=== PATIENT | male | born 1970 | race Caucasian/White ===

== ENCOUNTER 2017-04-16 12:29 | Emergency (ER) | payer OTHER ==
[~2017-04-16] VITALS: Ht 167.6 cm; Wt 68.2 kg
[2017-04-16 12:32] VITALS: BP 129/86; PULSE 73; TEMP 97.7
[2017-04-16] MEDS ORDERED: NORCO 325 MG-51 TAB PO (13:36)
[2017-04-16] MEDS ORDERED: IBU800 M1 PO (13:36)
== END 2017-04-16 13:54 | disposition home or self-care (01) ==
LOC: COL.ER 12:29
DX: S16.1XXA Strain of muscle, fascia and tendon at neck level, initial encounter (principal); S39.012A Strain of muscle, fascia and tendon of lower back, initial encounter; V48.6XXA Car passenger injured in noncollision transport accident in traffic accident, initial encounter
CPT/HCPCS: J1885; J2360

== ENCOUNTER 2017-04-20 10:18 | Emergency (ER) | payer OTHER ==
[~2017-04-20] VITALS: Ht 167.6 cm; Wt 70.5 kg
[~2017-04-20 10:18] MED LIST: IBU800 M1 PO; NORCO 325 MG-51 TAB PO
[2017-04-20 10:22] VITALS: BP 138/89; TEMP 97.2
[2017-04-20] MEDS ORDERED: FLEXERIL 1010 MG/TAB PO (10:39)
[2017-04-20 10:49] VITALS: PULSE 80
== END 2017-04-20 10:50 | disposition home or self-care (01) ==
LOC: COL.ER 10:18
DX: S13.4XXA Sprain of ligaments of cervical spine, initial encounter (principal); F07.81 Postconcussional syndrome; V89.2XXA Person injured in unspecified motor-vehicle accident, traffic, initial encounter